=== PATIENT | male | born 1995 | race Two or more races ===

== ENCOUNTER 2021-04-03 13:58 | Emergency (ER) | payer OTHER ==
[~2021-04-03] VITALS: Ht 177.8 cm; Wt 68.0 kg
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
[2021-04-03] MEDS ORDERED: IV NS 0.9% 1,000 ML BAG IV ONE (15:00)
[2021-04-03 15:25] LABS: BASOPHILS # (AUTO) 0.1 K/uL (0.0-0.2); BASOPHILS % (AUTO) 0.5 % (0.0-2.0); EOSINOPHILS % (AUTO) 1.1 % (0.0-6.0); HEMATOCRIT 45 % (39-51); HEMOGLOBIN 14.7 g/dL (13.5-17.5); LYMPHOCYTES # (AUTO) 3.9 K/uL (0.8-4.8); LYMPHOCYTES % (AUTO) 23.5 % (20.0-44.0); MEAN CORPUSCULAR HGB CONC 32 g/dl (31.0-36.0); MEAN CORPUSCULAR VOLUME 86 fL (80-96); MONOCYTES # (AUTO) 1.3 K/uL (0.1-1.30); MONOCYTES % (AUTO) 7.7 % (2.0-12.0); NEUTROPHILS # (AUTO) 11.2 K/uL (1.8-8.9); NEUTROPHILS % (AUTO) 67.2 % (43.0-81.0); PLATELET COUNT (AUTO) 565 K/uL (150-450); RED BLOOD CELL COUNT(AUTO) 5.26 MIL/uL (4.5-6.0); WHITE BLOOD COUNT (AUTO) 16.8 K/uL (4.3-11.0)
[2021-04-03 15:50] LABS: BILIRUBIN,DIRECT 0.1 mg/dL (0.0-0.2); BILIRUBIN,TOTAL 0.3 mg/dL (0.2-1.0); CREATININE 0.9 mg/dL (0.6-1.3); POTASSIUM 4.1 mmol/L (3.5-5.1); TOTAL PROTEIN, SERUM 8.3 g/dL (6.4-8.2)
[2021-04-03] MEDS ORDERED: CT SWABBABLE VALVE TRANS SET 1 EA INFUS.SET MC ONE (15:55)
[2021-04-03] MEDS ORDERED: IOHEXOL-300 100 ML VIAL IV ONE (15:55)
[2021-04-03] MEDS ORDERED: IV NS 0.9% 250 ML IV ONE (15:55)
[2021-04-03] MEDS ORDERED: IBUP-1955 PO (16:53)
--- NOTE | 2021-04-03 17:15 | NUR ---
Kristy rose (mother) [phone], [facility] [phone].
--- NOTE | 2021-04-03 17:44 | NUR ---
CALLED ANAMARIA CASTRO WITH ETA OF 60 MINS.
[2021-04-03 18:14] VITALS: BP 110/77
--- NOTE | 2021-04-03 18:17 | NUR ---
Patient discharged to home in stable condition. Written and verbal after care instructions given. Patient verbalizes understanding of instruction.IV removed. Catheter intact and site benign. Pressure and 4x4 applied to site. No bleeding noted.
== END 2021-04-03 18:17 | disposition home or self-care (01) ==
LOC: ER 14:28
DX: M25.552 Pain in left hip (principal); R10.32 Left lower quadrant pain; V49.69XA Unspecified car occupant injured in collision with other motor vehicles in traffic accident, initial encounter; Y93.89 Activity, other specified; Y92.413 State road as the place of occurrence of the external cause; Y99.8 Other external cause status
CPT/HCPCS: 36415; 71045; 74177; 80048; 80076; 85025; 85730; 86850; 96360; 99285; J7030; J7050; Q9967